=== PATIENT | male | born 1975 | race Caucasian/White ===

== ENCOUNTER 2017-03-04 13:07 | Emergency (ER) | payer MEDICAID ==
[~2017-03-04] VITALS: Ht 185.4 cm; Wt 99.3 kg
[~2017-03-04 13:07] MED LIST: ALBUTEROL SULF8.5 GM INH; AZITHROMYCIN250 MG ORAL; CYCLOBENZAPRINE10 MG ORAL; IBUPROFEN600 MG ORAL; KEFLEX500 MG ORAL; NKM; NORCO 5-325 TA1 EACH ORAL; SOMA350 MG PO
--- NOTE | 2017-03-04 14:11 | Diagnostic Imaging Report ---
Indication: PAIN Technique: 3 views of the left knee Comparison: None Findings:No acute fractures. No dislocations. Small ossific densities adjacent to the tibial tubercle most likely reflect unfused ossification centers. The joint spaces are preserved. No effusion Impression:No acute process
--- NOTE | 2017-03-04 14:22 | Emergency Room Report ---
History of Present Illness General Chief Complaint: Lower Extremity Injury Source: Patient Present Illness HPI 41-year-old male presents to the emergency department complaining of 8/10 in severity localized left knee pain with some swelling since yesterday. Patient states that he had acute onset and heard a pop in his knee with acute pain after getting up from a sitting position. Patient denies trauma or fall he denies previous injury to this extremity. Patient reports pain with weight- bearing denies instability. Denies open wounds, erythema, increased temperature palpation, fevers or chills. Denies history of gout. Denies numbness tingling or loss of sensation or gross motor movements of the extremities, incontinence of bowel or bladder. Denies CP, Palpitations, LOC, AMS , dizziness, Changes in Vision, Sensation, paresthesias, or a sudden severe headache. Allergies: Coded Allergies: No Known Allergies (Unverified , 09/12/13) Patient History Past Medical History: see triage record Past Surgical History: none Pertinent Family History: none Reviewed Nursing Documentation: PMH: Agreed, PSxH: Agreed Nursing Documentation-PMH Past Medical History: No Stated History Review of Systems All Other Systems: negative except mentioned in HPI Physical Exam Vital Signs Date Time Temp Pulse Resp B/P (MAP) Pulse Ox O2 Delivery O2 Flow Rate FiO2 03/04/17 13:15 97.9 69 20 118/69 97 Room Air Sp02 EP Interpretation: reviewed, normal General Appearance: no apparent distress, alert, GCS 15, non-toxic Head: normocephalic, atraumatic Eyes: bilateral eye normal inspection, bilateral eye PERRL ENT: hearing grossly normal, normal voice Neck: full range of motion Respiratory: lungs clear, normal breath sounds, speaking full sentences Cardiovascular #1: regular rate, rhythm, normal capillary refill Musculoskeletal: back normal, gait/station normal, normal range of motion - with pain, tender - anterior left knee TTP, with palpable swelling noted, no erythema, no increased laxity of the ligaments, negative anterior and posterior drawer sign, no obvious deformities Neurologic: alert, oriented x3, responsive, motor strength/tone normal, sensory intact, normal gait, speech normal Skin: normal color, no rash, warm/dry, well hydrated Medical Decision Making PA Attestation Dr. aranda is my supervising Physician whom patient management has been discussed with. Diagnostic Impression: Primary Impression: Left knee sprain Qualified Codes: S83.92XA - Sprain of unspecified site of left knee, initial encounter Additional Impression: Knee effusion, left ER Course 41-year-old male presents to the emergency department complaining of 8/10 in severity localized left knee pain with some swelling since yesterday. Patient states that he had acute onset and heard a pop in his knee with acute pain after getting up from a sitting position. Patient denies trauma or fall he denies previous injury to this extremity. Patient reports pain with weight- bearing denies instability. Denies open wounds, erythema, increased temperature palpation, fevers or chills. Denies history of gout. Denies numbness tingling or loss of sensation or gross motor movements of the extremities, incontinence of bowel or bladder. Denies CP, Palpitations, LOC, AMS , dizziness, Changes in Vision, Sensation, paresthesias, or a sudden severe headache. Ddx considered but are not limited to Fracture, dislocation, contusion, Sprain/ Strain/Spasm, meniscal injury. . Vital signs: are WNL, pt. is afebrile H&PE are most consistent with musculoskeletal injury will perform imaging to r/ o fractures/dislocations. ORDERS: - X-ray: Left knee 3 views ED INTERVENTIONS: - [place] PO -Roland wrap applied to the left knee by geophysical data technician. Pt. remains neurovascularly intact. -Crutches were provided -d/w pt. conservative treatment, and to follow up with a primary care provider. pt given a list of primary care clinics for follow up. d/w pt. to return to the ED with worsening or new symptoms. d/w pt. that if his symptoms persist he may require MRI in the future. DISCHARGE: At this time pt. is stable for d/c to home. Will provide printed patient care instructions, and any necessary prescriptions. Care plan and follow up instructions have been discussed with the patient prior to discharge. Other X-Ray Diagnostic Results Other X-Ray Diagnostic Results : X-Ray ordered: Left knee # of Views/Limited Vs Complete: 3 View Indication: Pain EP Interpretation: Yes PA Xray: Interpretation reviewed, by supervising MD, and agrees with findings. Interpretation: no dislocation, no soft tissue swelling, no fractures Impression: No acute disease Electronically Signed by: Jossie Hernandez PA-C Last Vital Signs Date Time Temp Pulse Resp B/P (MAP) Pulse Ox O2 Delivery O2 Flow Rate FiO2 03/04/17 13:15 97.9 69 20 118/69 97 Room Air Disposition: HOME, SELF-CARE Condition: Stable Scripts Lidocaine (Lidoderm) 1 Each Adh..patch 1 PATCH TOPIC Q12HR, #20 PATCH 0 Refills Patch(es) may remain in place for up to 12 hours in any 24-hour period. Prov: Jossie Hernandez 03/04/17 Naproxen* (NAPROXEN*) 500 Mg Tablet 500 MG ORAL TWICE A WEEK, #22 TAB 0 Refills Prov: Jossie Hernandez 03/04/17 Referrals: [facility],REFERRING (PCP) Departure Forms: Return to Work Return to Work Date: Mar 08, 2017 Work Restrictions: No Heavy Lifting, No Prolonged Standing Other Restrictions: light duty ,limited weight bearing on left knee. x 1 week. Return to Full Activity: Mar 15, 2017 Patient Instructions: Knee Sprain Additional Instructions: Take medications as directed. Follow up with a Primary Care Provider in 3-5 days, even if your symptoms have resolved. --Please review list of primary care clinics, if you do not already have a primary care provider MAY NEED MRI IF SYMPTOMS DO NOT IMPROVE> Return sooner to ED if new symptoms occur, or current symptoms become worse. - Please note that this Emergency Department Report was dictated using [employer] certified family physician technology software, occasionally this can lead to erroneous entry secondary to interpretation by the dictation equipment. Jossie Hernandez Mar 04, 2017 14:22
[2017-03-04] MEDS ORDERED: NAPROXEN500 M2 ORAL (14:23)
[2017-03-04] MEDS ORDERED: LIDODERM700 M1 TOPIC (14:23)
[2017-03-04 14:34] VITALS: BP 118/69
== END 2017-03-04 14:30 | disposition home or self-care (01) ==
LOC: EMR 13:53
DX: S83.92XA Sprain of unspecified site of left knee, initial encounter (principal); X50.9XXA Other and unspecified overexertion or strenuous movements or postures, initial encounter; Y92.89 Other specified places as the place of occurrence of the external cause; M25.462 Effusion, left knee
CPT/HCPCS: 99284

== ENCOUNTER 2017-11-20 08:51 | Emergency (ER) | payer MEDICAID ==
[~2017-11-20] VITALS: Ht 185.4 cm; Wt 96.2 kg
[~2017-11-20 08:51] MED LIST changes: +LIDODERM700 M1 TOPIC; +NAPROXEN500 M2 ORAL
[2017-11-20 09:08] VITALS: BP 112/73
[2017-11-20] MEDS ORDERED: NKM (09:10)
[2017-11-20 09:49] LABS: APPEARANCE,URINE SLIGHTLY CLOUDY; BILIRUBIN, URINE NEGATIVE (NEGATIVE); GLUCOSE, URINE (UA) NEGATIVE (NEGATIVE); KETONES,URINE NEGATIVE (NEGATIVE); LEUKOCYTE ESTERASE ,URINE 2+ (NEGATIVE); NITRITE,URINE NEGATIVE (NEGATIVE); PH,URINE 5 (4.5-8.0); PROTEIN,URINE NEGATIVE (NEGATIVE); UROBILINOGEN,URINE NORMAL MG/DL (0.0-1.0)
[2017-11-20 09:56] LABS: COLOR,URINE YELLOW
--- NOTE | 2017-11-20 10:54 | Emergency Room Report ---
History of Present Illness General Chief Complaint: Male Urogenital Problems Source: Patient Present Illness HPI This patient c/o 1-2 days dysuria, clear-white penile d/c. He generally uses a condom but about ten days ago condom broke during intercourse. No fever, no abd pain. No trauma, no fever, no shortness of breath, no chest pain, no nausea, no vomiting, no diarrhea, no abdominal pain, no syncope, LOC, dizziness, lightheadedness, headache. Allergies: Coded Allergies: No Known Allergies (Unverified , 09/12/13) Nursing Documentation-[facility] Past Medical History: No Stated History Review of Systems Constitutional: Denies: fever Eye: Denies: acuity changes Respiratory: Denies: cough, shortness of breath Cardiovascular: Denies: chest pain Gastrointestinal: Denies: nausea, vomiting Skin: Denies: rash Neurological: Denies: headache Physical Exam Vital Signs Date Time Temp Pulse Resp B/P (MAP) Pulse Ox O2 Delivery O2 Flow Rate FiO2 11/20/17 09:08 98.3 60 18 112/73 96 Room Air 98.2 General Appearance: well appearing, no apparent distress Head: normocephalic, atraumatic ENT: hearing grossly normal, normal voice Neck: full range of motion, supple Respiratory: no respiratory distress, speaking full sentences Genitourinary: normal inspection, no CVA tenderness, other - there is small amount thin white d/c Musculoskeletal: no calf tenderness Neurologic: alert, normal gait Psychiatric: mood/affect normal Skin: no rash Medical Decision Making Diagnostic Impression: Primary Impression: Dysuria ER Course I d/w patient that gc/chlamydia takes two days. in the meantime, rx. here. No sex until result known. If negative, may be ordinary uti and nothing else to do. If subsequent uti then needs gu w/u. Pt. has doctor from prior STD scares. Last Vital Signs Date Time Temp Pulse Resp B/P (MAP) Pulse Ox O2 Delivery O2 Flow Rate FiO2 11/20/17 09:08 98.3 60 18 112/73 96 Room Air 98.3 Disposition: HOME, SELF-CARE Condition: Stable Referrals: [facility],REFERRING (PCP) Patient Instructions: Urethritis, Adult Aleks Suarez M.D. Nov 20, 2017 10:54
[2017-11-20] MEDS ORDERED: Azithromycin 250mg tab ORAL ONE (11:00)
[2017-11-20] MEDS ORDERED: Lidocaine 1% MPF 10mg/ml 5ml INJ ONE (11:00)
[2017-11-20 11:52] VITALS: BP 110/68
== END 2017-11-20 11:52 | disposition home or self-care (01) ==
LOC: EMR 09:58
DX: R30.0 Dysuria (principal)
CPT/HCPCS: 81001; 87086; 96372; 99283; J0696; Q0144

== ENCOUNTER 2018-05-13 21:18 | Emergency (ER) | payer MEDICAID ==
[~2018-05-13] VITALS: Ht 185.4 cm; Wt 93.0 kg
[2018-05-13 21:59] VITALS: BP 135/90
--- NOTE | 2018-05-13 21:59 | NUR ---
ED Nurse Note: pt walked into ED c/o flu like s/s for three days, pt states he has been taking otc cold medicine but hasn't been getting any better and progressively worsen. pt aa&ox4, gcs=15, skin warm and dry, resp even and unlabored, -n/v/d, ambulates w/ steady gait, noted dry cough and nasal congestion. will cont monitor. ERMD aware pt's fever.
[2018-05-13] MEDS ORDERED: TAMIFLU75 MG ORAL (22:54)
[2018-05-13] MEDS ORDERED: IBUPROFEN600 MG ORAL (22:54)
[2018-05-13] MEDS ORDERED: Ketorolac 30mg Inj ONE (23:00)
[2018-05-13] MEDS ORDERED: Ketorolac 30mg Inj IM ONE (23:00)
[2018-05-13 23:07] VITALS: BP 128/66
--- NOTE | 2018-05-13 23:07 | NUR ---
ED Nurse Note: pt discharge instruction provided w/ prescription, pt verbalized understanding and agrees with plan, pt advised to follow up with pcp in 2-3days, pt education done, pt left with all belongings, pt wristband removed, pt advised to return to ed if s/s wrosen or new s/s develop.
--- NOTE | 2018-05-14 03:13 | Emergency Room Report ---
History of Present Illness General Chief Complaint: Flu Like Symptoms Source: Patient Present Illness HPI 42-year-old male presents ED for evaluation. Patient complaining of fever, body aches, chills cough 3 days. Febrile in triage. Has been taking Motrin and Tylenol without relief. Pain is throbbing, 6 out of 10, nonradiating. Denies sick contacts or recent travel. States he did not receive flu vaccine this year. No other aggravating relieving factors. Denies any other associated symptoms Allergies: Coded Allergies: No Known Allergies (Unverified , 09/12/13) Patient History Past Medical History: none Past Surgical History: none Pertinent Family History: none Social History: Denies: smoking, alcohol use, drug use Immunizations: UTD Reviewed Nursing Documentation: PMH: Agreed; PSxH: Agreed Nursing Documentation-PMH Past Medical History: No Stated History Review of Systems All Other Systems: negative except mentioned in HPI Physical Exam Vital Signs Date Time Temp Pulse Resp B/P (MAP) Pulse Ox O2 Delivery O2 Flow Rate FiO2 05/13/18 21:54 103.1 80 22 135/90 96 Room Air Sp02 EP Interpretation: reviewed, normal General Appearance: no apparent distress, alert, GCS 15, non-toxic Head: normocephalic, atraumatic Eyes: bilateral eye normal inspection, bilateral eye PERRL ENT: hearing grossly normal, normal pharynx, no angioedema, normal voice Neck: full range of motion, supple/symm/no masses Respiratory: chest non-tender, lungs clear, normal breath sounds, speaking full sentences Cardiovascular #1: regular rate, rhythm, no edema Cardiovascular #2: 2+ carotid (R), 2+ carotid (L), 2+ radial (R), 2+ radial (L) , 2+ dorsalis pedis (R), 2+ dorsalis pedis (L) Gastrointestinal: normal bowel sounds, non tender, soft, non-distended, no guarding, no rebound Rectal: deferred Genitourinary: normal inspection, no CVA tenderness Musculoskeletal: back normal, gait/station normal, normal range of motion, non- tender Neurologic: alert, oriented x3, responsive, motor strength/tone normal, sensory intact, speech normal Psychiatric: judgement/insight normal, memory normal, mood/affect normal, no suicidal/homicidal ideation Reflexes: 3+ bicep (R), 3+ bicep (L), 3+ tricep (R), 3+ tricep (L), 3+ knee (R) , 3+ knee (L) Skin: normal color, no rash, warm/dry, well hydrated Lymphatic: no adenopathy Medical Decision Making Diagnostic Impression: Primary Impression: Influenza-like symptoms ER Course Hospital Course 42-year-old M presents to ED complaining of fever + bodyaches + cough Differential diagnoses include: URI, pharyngitis, otitis media, influenza Clinical course Patient placed on stretcher. After initial history physical exam reveals a male in no acute distress. Bilateral TM unremarkable, no pharyngeal erythema. Lungs clear. No CVA tenderness. Given toradol in ED. Clinical findings concerning for influenza. Given that I will treat him with Tamiflu Safe for discharge with close outpatient follow-up. Does not have a PMD. We' ll provide referrals Diagnosis - influenza-like symptoms Stable and discharged home with prescriptions for tamiflu, motrin. drink plenty of fluids. Instructed to followup with PMD. Return to ED if symptoms recur or worsen Last Vital Signs Date Time Temp Pulse Resp B/P (MAP) Pulse Ox O2 Delivery O2 Flow Rate FiO2 05/13/18 23:07 99.9 89 20 128/66 98 Room Air Status: improved Disposition: HOME, SELF-CARE Condition: Stable Scripts Oseltamivir Phosphate (Tamiflu) 75 Mg Capsule 75 MG ORAL TWICE A DAY for 5 Days, CAP Prov: Jayme Amado MD 05/13/18 Ibuprofen* (MOTRIN*) 600 Mg Tablet 600 MG ORAL Q8H PRN for For Pain, #30 TAB 0 Refills Prov: Jayme Amado MD 05/13/18 Referrals: [facility],REFERRING (PCP) [facility] Patient Instructions: Influenza, Adult, [id number] Jayme Amado MD May 14, 2018 03:13
== END 2018-05-13 23:07 | disposition home or self-care (01) ==
LOC: EMR 21:41
DX: J11.1 Influenza due to unidentified influenza virus with other respiratory manifestations (principal)
CPT/HCPCS: 96372; 99283; J1885